=== PATIENT | female | born 1965 | race Caucasian/White ===

== ENCOUNTER → 2017-05-23 | Day surgery (SDC) | payer OTHER ==
--- NOTE | 2017-05-20 12:30 | History & Physical Pre-Op ---
General Information and HPI History of Present Illness: Kayleigh is a 51-year-old female with a long-standing and worsening complaint of a painful neuroma left foot. The patient has undergone an extended course of conservative care, including shoe gear and activity modification, rest, immobilization and courses of NSAIDs. None of this is yielded her any relief. The patient presents today for preoperative surgical consultation. The patient was referred to our office from Cezar Mesa DPM. Allergies/Medications Allergies: Uncoded Allergies: SPORNAX (HIVES 05/29/15) Home Med list Alprazolam (Xanax) 1 MG TABLET 1.5 TAB PO QHS PRN SLEEP (Reported) Atorvastatin Calcium 40 MG TABLET 1 TAB PO DAILY CHOLESTEROL (Reported) [ESTROGEN PATCH] MENOPAUSE (Reported) Levothyroxine Sodium (Synthroid) 125 MCG TABLET 1 TAB PO DAILY HYPOTHYROID ( Reported) Magnesium Oxide 400 MG TABLET 1 TAB PO DAILY PALPATATIONS (Reported) Metoprolol Succ XL (Toprol Xl) 50 MG TAB 1.5 TAB PO DAILY HEART PALPATATIONS (Reported) Progesterone,Micronized (Progesterone) 100 MG CAPSULE 1 CAP PO QPM MENOPAUSE (Reported) Triamterene/Hydrochlorothiazid (Triamterene-Hctz 37.5-25 MG Cp) 37.5 MG-25 MG CAPSULE 1 CAP PO DAILY MENIERES (Reported) Past History Medical History Cardiovascular: hypertension, hyperlipidemia Psychiatric: anxiety Endocrine: hypothyroidism Surgical History Pertinent Surgical History: non-contributory Review of Systems Review of Systems: Unremarkable except for that noted in history of present illness Exam & Diagnostic Data Physical Exam: Lungs clear bilaterally. Heart sounds rate and rhythm regular. Lower extremity physical exam demonstrates intact pedal pulses bilaterally. Both dorsalis pedis and posterior tibial arteries are palpable bilaterally. Patient without any sensory motor deficits. Deep tendon reflexes grossly intact. Patient noted to have same and pain with palpation to the plantar aspect of the third interspace left foot. Positive Bryce's sign identified. Assessment/Plan Assessment/Plan: Painful neuroma left foot. A lengthy discussion reviewing both surgical and conservative options was held the patient at bedside and the patient elects to go forward with surgery despite the risks. As Ranked By This Provider Problem List: 1. Lesion of left plantar nerve Attending MD Review Statement Attending Statement Attending MD Statement: examined this patient
[~2017-05-23] VITALS: Ht 172.7 cm; Wt 83.5 kg
[~2017-05-23] MED LIST: ATORVASTATIN CA40 M1 PO; ESTROGEN PATCH; MAGNESIUM OXID400 M1 PO; PROGESTERONE100 M2 PO; SYNTHROID125 MCG PO; TOPROL XL50 M1 PO; TRIAMTERENE-HC1 EAC3 PO; XANAX1 M1 PO
--- NOTE | 2017-05-23 08:25 | Operative Report ---
Operative/Inv Procedure Report Surgery Date: 05/23/17 Name of Procedure: 1 excision of neuroma left foot 2 intraoperative administration of ankle block anesthesia Pre-Operative Diagnosis: 1 painful neuroma left foot Post-Operative Diagnosis: The same Estimated Blood Loss: scant Surgeon/Portrait Consultant: TRACE ARCHER DPM, DPM Anesthesia: moderate sedation, block Operative/Procedure Note Note: After obtaining informed consent the patient was brought to the operating room and placed on the operating table in the supine position. The patient was then securely fastened to the operating table utilizing safety belt. After administration of IV sedation, 10 mL of 0.5% Marcaine plain was infiltrated about the patient's left ankle. A well-padded ankle tourniquet was placed about the patient's left lower semi-. 2 g of Ancef were delivered intravenously times one dose. The left foot and ankle then scrubbed prepped and draped in usual aseptic manner. Left lower extremity was elevated to examine to limb, at which point the ankle tourniquet was inflated 250 mmHg. Attention was directed dorsal aspect the left foot, where a 4 cm linear incision was made over the distal third interspace. The skin was signed 15 blade and deepened subtenons tissues. All vital neurovascular structures were identified protected. The dissection was then carried down to the digital branches of the third interspace neuroma which were freed and the body of the neuroma was identified. The body of neuroma was then freed of adjacent soft tissue attachments distracted distally and cut proximally. The specimen was sent for pathologic inspection. The wound was irrigated with normal sterile saline. The deep tissues reports a 4-0 Vicryl and the skin edges reprepped with 4-0 nylon. Incision was then dressed with Xeroform 4 x 4's Kerlix and an Drake wrap. The patient was noted to tolerate both procedure and anesthesia well and the patient was transported from the operating room to recovery with vital signs stable best assess intact all digits left foot.
== END ==
LOC: STS 02:01
DX: G57.62 Lesion of plantar nerve, left lower limb (principal); E03.9 Hypothyroidism, unspecified; I10 Essential (primary) hypertension
CPT/HCPCS: J2001; J2250